=== PATIENT | male | born 1940 | race Caucasian/White ===

== ENCOUNTER → 2016-07-07 | Outpatient (CLI) | payer BC ==
[~2016-07-07] MED LIST: BNC/40 PO; HYDR12.55 PO; LATA0.009 OP; MELO7.5T5 PO; MULT-506 PO; NXM/40 PO; RAMI10CA PO; SIMV80TA5 PO; VNTHFA/IN INH
[2016-07-07 10:12] LABS: BASO % 0.4 %; BASO ABS # 0.03 K/uL (0-0.2); COMPLETE YES; HEMATOCRIT 42.2 % (42-52); IG% 0.3 %; LYMPH % 30.2 %; LYMPH ABS # 2.28 K/uL (1.2-3.4); MEAN CELL VOLUME 89.8 fL (80-100); MEAN CORPUSCULAR HEMOGLOBIN 30.4 pg (25-34); MEAN CORPUSCULAR HGB CONC 33.9 g/dl (32-36); MEAN PLATELET VOLUME 10.9 fL (7.4-10.4); MONO % 9.5 %; NEUT % 56.6 %; PLATELET COUNT 235 K/uL (130-400); WHITE BLOOD COUNT 7.56 K/uL (4.8-10.8)
[2016-07-07 10:22] LABS: ESTIMATED AVERAGE GLUCOSE 128 mg/dl; HA1C FLAG Normal (Normal)
[2016-07-07 10:55] LABS: AST/SGOT 20 U/L (15-37); BLOOD UREA NITROGEN 18 mg/dl (7-18); BUN/CREATININE RATIO 16.7 (10-20); CALCIUM 9.1 mg/dl (8.5-10.1); CARBON DIOXIDE 27 mmol/L (21-32); CHLORIDE 103 mmol/L (98-107); GLUCOSE 117 mg/dl (70-99); MAGNESIUM 2.1 mg/dl (1.8-2.4); POTASSIUM 3.8 mmol/L (3.5-5.1); SODIUM 139 mmol/L (136-145)
[2016-07-07 11:03] LABS: ALB/GLOB RATIO 1.1 (0.9-2); ALKALINE PHOSPHATASE 47 U/L (45-117); ALT/SGPT 28 U/L (12-78); CHOLESTEROL 174 mg/dl (0-200); CHOLESTEROL/HDL RATIO 3.3; HDL CHOLESTEROL 53 mg/dl; LDL CHOLESTEROL CALCULATED 96 mg/dl; TRIGLYCERIDES 124 mg/dl (0-150); VERY LOW DENSITY LIPOPROT CALC 25 mg/dl
== END | disposition home or self-care (01) ==
LOC: C.LAB 09:09
PROVIDERS: ATTEND Internal Medicine
DX: E78.5 Hyperlipidemia, unspecified (principal); G62.9 Polyneuropathy, unspecified; E11.9 Type 2 diabetes mellitus without complications

== ENCOUNTER → 2016-12-09 | Outpatient (CLI) | payer BC ==
[2016-12-09 10:08] LABS: BASO % 0.3 %; BASO ABS # 0.03 K/uL (0-0.2); COMPLETE YES; EOS % 2.8 %; HEMATOCRIT 42.9 % (42-52); IG% 0.3 %; LYMPH % 22.4 %; LYMPH ABS # 2.01 K/uL (1.2-3.4); MEAN CELL VOLUME 89.7 fL (80-100); MEAN CORPUSCULAR HEMOGLOBIN 29.3 pg (25-34); MEAN CORPUSCULAR HGB CONC 32.6 g/dl (32-36); MONO % 12.3 %; NEUT % 61.9 %; PLATELET COUNT 237 K/uL (130-400); RED BLOOD COUNT 4.78 M/uL (4.7-6.1); WHITE BLOOD COUNT 8.97 K/uL (4.8-10.8)
[2016-12-09 10:20] LABS: ESTIMATED AVERAGE GLUCOSE 140 mg/dl; HA1C FLAG Normal (Normal)
[2016-12-09 10:43] LABS: ALT/SGPT 27 U/L (12-78); BLOOD UREA NITROGEN 25 mg/dl (7-18); BUN/CREATININE RATIO 22.4 (10-20); CALCIUM 9.5 mg/dl (8.5-10.1); CARBON DIOXIDE 26 mmol/L (21-32); CHLORIDE 103 mmol/L (98-107); CHOLESTEROL 161 mg/dl (0-200); GLUCOSE 120 mg/dl (70-99); POTASSIUM 3.7 mmol/L (3.5-5.1); SODIUM 139 mmol/L (136-145); TRIGLYCERIDES 110 mg/dl (0-150); VERY LOW DENSITY LIPOPROT CALC 22 mg/dl
[2016-12-09 10:48] LABS: ALKALINE PHOSPHATASE 64 U/L (45-117); AST/SGOT 20 U/L (15-37); HDL CHOLESTEROL 54 mg/dl; LDL CHOLESTEROL CALCULATED 85 mg/dl; PROSTATE SPECIFIC ANTIGEN 0.845 ng/ml (0.000-4.000)
[2016-12-09 10:54] LABS: RATIO 281.7 mcg/mg (0-30.0)
== END ==
LOC: C.LAB 09:14
PROVIDERS: ATTEND Internal Medicine
DX: E11.9 Type 2 diabetes mellitus without complications (principal); G62.9 Polyneuropathy, unspecified; K21.9 Gastro-esophageal reflux disease without esophagitis; N40.0 Benign prostatic hyperplasia without lower urinary tract symptoms

== ENCOUNTER → 2017-02-01 | Day surgery (SDC) | payer BC ==
[2017-01-19 15:08] VITALS: BMI 31.0
[~2017-02-01] VITALS: Ht 182.9 cm; Wt 104.5 kg
[~2017-02-01] MED LIST changes: +LIDOCAINE HCL 2% 2 ML VIAL (20MG/ML) ONE; +PROPOFOL IV EMULSION 10 MG/ML 20 ML VIAL IV ONE
[2017-02-01 09:22] VITALS: Ht 182.9 cm; Wt 104.5 kg
--- NOTE | 2017-02-01 09:41 | Endo History and Physical ---
History & Physical Date of Service: Feb 01, 2017. Chief Complaint: HISTORY OF POLYPS Referring Physician: DR. PALOMO History of Present Illness 76 yo CM who presents for colonoscopy secondary to history of colon polyps. Past Surgical History Hx Cardiac Surgery: No Hx Internal Defibrillator: No Hx Pacemaker: No Hx Abdominal Surgery: No Hx Post-Op Nausea and Vomiting: No Hx Cancer Surgery: No Hx Thoracic Surgery: No Hx Orthopedic: No Hx Urinary Tract Surgery: No Family History None Social History Smoking Status: Former Smoker Hx Substance Use: No Hx Alcohol Use: Yes (OCCASIONAL) Allergies Coded Allergies: Allopurinol (Verified Allergy, Unknown, WRIST PAIN, 02/01/17) Diltiazem (Verified Allergy, Unknown, FEELING TIRED, 02/01/17) Doxazosin (Verified Allergy, Unknown, FEELING TIRED, 02/01/17) Hydrochlorothiazide (Verified Allergy, Unknown, FEELING TIRED, 02/01/17) Losartan (Verified Allergy, Unknown, FEELING TIRED, 02/01/17) Current Medications Reported Home Medications Medications Dose Route/Sig Max Daily Dose Days Date Category Xalatan 0.005% Oph Shannon (Latanoprost) 0.005 % Shannon 1 Drops OP HS 01/19/17 Reported Ventolin Hfa (Albuterol) 200 Puffs/90975 Mcg Aers 2-4 Puffs INH Q6H PRN 01/19/17 Reported Multivitamin (Multivitamins) Tab 1 Tab PO DAILY 01/19/17 Reported Zocor (Simvastatin) 80 Mg Tab 80 Mg PO QPM 01/19/16 Reported Ramipril 10 Mg Cap 1 Cap PO BID 01/19/16 Reported Mobic (Meloxicam) 7.5 Mg Tab 7.5 Mg PO BID PRN 01/19/16 Reported Hydrochlorothiazide 12.5 Mg Tab 1 Tab PO QAM 01/19/16 Reported Nexium (Esomeprazole Magnesium) 40 Mg Capcr 40 Mg PO QPM 01/19/16 Reported Benicar (Olmesartan Medoxomil) 40 Mg Tab 40 Mg PO QAM 01/19/16 Reported Vital Signs Weight (Kilograms): 104.55 Height (Feet): 6 Height (Inches): 0 Physical Exam General Appearance: WD/WN, no apparent distress Respiratory/Chest: Auscultation: breath sounds normal Cardiovascular: Heart Auscultation: RRR Abdomen: Bowel Sounds: normal Inspection & Palpation: soft, non-distended, no tenderness, guarding & rebound Assessment and Plan Assessment: 76 yo CM who presents for colonoscopy secondary to history of colon polyps. Plan: Proceed with colonoscopy.
--- NOTE | 2017-02-01 10:45 | GI REPORT ---
Procedure Date: 02/01/2017 10:04 AM Procedure: Colonoscopy Indications: High risk colon cancer surveillance: Personal history of colonic polyps Medicines: Monitored Anesthesia Care Complications: No immediate complications. Estimated Blood Loss: Estimated blood loss: none. Procedure: Pre-Anesthesia Assessment: - Prior to the procedure, a History and Physical was performed, and patient medications and allergies were reviewed. The patient's tolerance of previous anesthesia was also reviewed. The risks and benefits of the procedure and the sedation options and risks were discussed with the patient. All questions were answered, and informed consent was obtained. Prior Anticoagulants: The patient has taken no previous anticoagulant or antiplatelet agents. ASA Grade Assessment: III - A patient with severe systemic disease. After reviewing the risks and benefits, the patient was deemed in satisfactory condition to undergo the procedure. After I obtained informed consent, the scope was passed under direct vision. Throughout the procedure, the patient's blood pressure, pulse, and oxygen saturations were monitored continuously. The Scope was introduced through the anus and advanced to the terminal ileum. The colonoscopy was performed without difficulty. The patient tolerated the procedure well. The quality of the bowel preparation was good. The terminal ileum, ileocecal valve, appendiceal orifice, and rectum were photographed. Findings: Four sessile polyps were found in the rectum and in the transverse colon. The polyps were 4 to 6 mm in size. These polyps were removed with a hot snare. Resection and retrieval were complete. Multiple small-mouthed diverticula were found in the sigmoid colon. Non-bleeding internal hemorrhoids were found during retroflexion. Impression: - Four 4 to 6 mm polyps in the rectum and in the transverse colon, removed with a hot snare. Resected and retrieved. - Diverticulosis in the sigmoid colon. - Non-bleeding internal hemorrhoids. Recommendation: - Resume previous diet. - Continue present medications. - Repeat colonoscopy for surveillance based on pathology results. - Return to primary care physician as previously scheduled. Milton Balderas, DO 02/01/2017 10:44:50 AM This report has been signed electronically. Note Initiated On: 02/01/2017 10:04 AM I attest to the content of the Intraoperative Record and orders documented therein, exceptions below
--- NOTE | 2017-02-01 10:47 | Discharge Instructions ---
Endoscopy Patient Instructions Date / Procedure(s) Performed Feb 01, 2017. Colonoscopy Allergy Information Coded Allergies: Allopurinol (Verified Allergy, Unknown, WRIST PAIN, 02/01/17) Diltiazem (Verified Allergy, Unknown, FEELING TIRED, 02/01/17) Doxazosin (Verified Allergy, Unknown, FEELING TIRED, 02/01/17) Hydrochlorothiazide (Verified Allergy, Unknown, FEELING TIRED, 02/01/17) Losartan (Verified Allergy, Unknown, FEELING TIRED, 02/01/17) Discharge Date / Findings Feb 01, 2017. Colon polyps Diverticulosis Internal hemorrhoids Medication Instructions OK to resume all medications today as prescribed Reported Home Medications Medications Dose Route/Sig Max Daily Dose Days Date Category Xalatan 0.005% Oph Shannon (Latanoprost) 0.005 % Shannon 1 Drops OP HS 01/19/17 Reported Ventolin Hfa (Albuterol) 200 Puffs/88572 Mcg Aers 2-4 Puffs INH Q6H PRN 01/19/17 Reported Multivitamin (Multivitamins) Tab 1 Tab PO DAILY 01/19/17 Reported Zocor (Simvastatin) 80 Mg Tab 80 Mg PO QPM 01/19/16 Reported Ramipril 10 Mg Cap 1 Cap PO BID 01/19/16 Reported Mobic (Meloxicam) 7.5 Mg Tab 7.5 Mg PO BID PRN 01/19/16 Reported Hydrochlorothiazide 12.5 Mg Tab 1 Tab PO QAM 01/19/16 Reported Nexium (Esomeprazole Magnesium) 40 Mg Capcr 40 Mg PO QPM 01/19/16 Reported Benicar (Olmesartan Medoxomil) 40 Mg Tab 40 Mg PO QAM 01/19/16 Reported Provider Instructions Activity Restrictions - No exercising or heavy lifting for 24 hours. - Do not drink alcohol the day of the procedure. - Do not drive a car or operate machinery until the day after the procedure. - Do not make any important decisions or sign important papers in 24 hours after the procedure. Following Day: - Return to full activity which may include returning to work/school. Diet Start your diet with liquids and light foods (jello, soup, juice, toast). Then eat your usual diet if not nauseated. Treatment For Common After Affects For mild abdominal pain, bloating, or excessive gas: - Rest - Eat lightly - Lie on right side Follow-Up Information Follow-up with DR. PALOMO as scheduled Anesthesia Information What You Should Know You have had a procedure that required some medicine to reduce anxiety and discomfort. This treatment is called moderate sedation. After receiving the treatment, you may be sleepy, but you will be able to breathe on your own. The effects of the treatment may last for several hours. Follow these instructions along with Activity/Diet recommendations noted above: * Do NOT do anything where dizziness or clumsiness would be dangerous. * Rest quietly at home today, then you can be up and about tomorrow. * Have a responsible person stay with you the rest of today. * You may have had an I.V. today. If so, you may take the dressing off later today. Recommendations Call your doctor if: * Trouble breathing * Continuous vomiting for more than 24 hours * Temperature above 101 degrees * Severe abdominal pain or bloating * Pain not relieved by pain medicine ordered * There is increased drainage or redness from any incision * A large amount of rectal bleeding greater than 2-3 tablespoons. (If you had a polyp/s removed or have hemorrhoids, a small amount of blood - from the rectum is to be expected.) * You have any unanswered questions or concerns. IN THE EVENT OF A SERIOUS EMERGENCY, GO TO THE NEAREST EMERGENCY ROOM Your discharge instructions were prepared by provider Milton Balderas. Patient Instructions Signature Page Jose Frye Patient (or Guardian) Signature/Date: I have read and understand the instructions given to me by my caregivers. Caregiver/RN/Doctor Signature/Date: The above-named patient and/or guardian has received patient instructions on this date. + Original Patient Signature Page (only) stays with chart. Please make copy for patient.
--- NOTE | 2017-02-01 11:03 | Anesthesiology Progress Note ---
Anesthesia Post Op Note Date & Time Feb 01, 2017 at 11:03 Vital Signs Pain Intensity: 0 Vital Signs Past 12 Hours Date Time Temp Pulse Resp B/P (MAP) Pulse Ox O2 Delivery O2 Flow Rate FiO2 02/01/17 10:47 65 20 126/55 (78) 96 Room Air 02/01/17 09:40 36.5 68 20 182/100 (127) 92 Room Air Notes Mental Status: alert / awake / arousable, participated in evaluation Pt Amnestic to Procedure: Yes Nausea / Vomiting: adequately controlled Pain: adequately controlled Airway Patency, RR, SpO2: stable & adequate BP & HR: stable & adequate Hydration State: stable & adequate Anesthetic Complications: no major complications apparent
[2017-02-01 11:19] VITALS: BP 158/63; PULSE 64; O2SAT 95
== END | disposition home or self-care (01) ==
LOC: C.GI 09:00
PROVIDERS: ATTEND Internal Medicine
DX: Z12.11 Encounter for screening for malignant neoplasm of colon (principal); D12.3 Benign neoplasm of transverse colon; K62.1 Rectal polyp; K57.30 Diverticulosis of large intestine without perforation or abscess without bleeding; K64.8 Other hemorrhoids; Z86.010 Personal history of colon polyps; Z87.891 Personal history of nicotine dependence; Z79.899 Other long term (current) drug therapy

== ENCOUNTER → 2017-06-22 | Outpatient (CLI) | payer BC ==
[~2017-06-22] MED LIST changes: -LIDOCAINE HCL 2% 2 ML VIAL (20MG/ML) ONE; -PROPOFOL IV EMULSION 10 MG/ML 20 ML VIAL IV ONE; -SIMV80TA5 PO; +SIMV80TA7 PO
[2017-06-22 11:29] LABS: BASO % 0.3 %; BASO ABS # 0.03 K/uL (0-0.2); EOS % 1.8 %; EOS ABS # 0.18 K/uL (0-0.5); HEMATOCRIT 43.6 % (42-52); HEMOGLOBIN 14.2 g/dL (14.0-18.0); IG# 0.03 K/uL (0.00-0.02); LYMPH % 16.7 %; LYMPH ABS # 1.68 K/uL (1.2-3.4); MEAN CORPUSCULAR HEMOGLOBIN 29.6 pg (25-34); MEAN CORPUSCULAR HGB CONC 32.6 g/dl (32-36); MEAN PLATELET VOLUME 11.6 fL (7.4-10.4); MONO % 11.9 %; NEUT ABS # 6.97 K/uL (1.4-6.5); PLATELET COUNT 231 K/uL (130-400); RED CELL DISTRIBUTION WIDTH CV 13.8 % (11.5-14.5); RED CELL DISTRIBUTION WIDTH SD 46.4 fL (36.4-46.3); WHITE BLOOD COUNT 10.09 K/uL (4.8-10.8)
[2017-06-22 11:36] LABS: HEMOGLOBIN A1C 6.4 % (4.5-5.6)
[2017-06-22 12:44] LABS: ALT/SGPT 31 U/L (12-78); AST/SGOT 22 U/L (15-37); BLOOD UREA NITROGEN 18 mg/dl (7-18); CALCIUM 9.3 mg/dl (8.5-10.1); CARBON DIOXIDE 25 mmol/L (21-32); CHOLESTEROL 161 mg/dl (0-200); CREATININE 1.12 mg/dl (0.60-1.40); GLUCOSE 111 mg/dl (70-99); POTASSIUM 3.7 mmol/L (3.5-5.1); SODIUM 139 mmol/L (136-145)
[2017-06-22 12:49] LABS: LDL CHOLESTEROL CALCULATED 87 mg/dl
== END | disposition home or self-care (01) ==
LOC: C.LAB 09:21
PROVIDERS: ATTEND Internal Medicine
DX: E11.9 Type 2 diabetes mellitus without complications (principal); E78.5 Hyperlipidemia, unspecified; G62.9 Polyneuropathy, unspecified

== ENCOUNTER → 2018-01-05 | Outpatient (CLI) | payer BC ==
[2018-01-05 10:26] LABS: ALT/SGPT 31 U/L (12-78); AST/SGOT 30 U/L (15-37); BLOOD UREA NITROGEN 17 mg/dl (7-18); CALCIUM 9.3 mg/dl (8.5-10.1); CARBON DIOXIDE 29 mmol/L (21-32); CHOLESTEROL 136 mg/dl (0-200); CREATININE 1.01 mg/dl (0.60-1.40); GLUCOSE 112 mg/dl (70-99); LDL CHOLESTEROL CALCULATED 69 mg/dl; POTASSIUM 3.9 mmol/L (3.5-5.1); SODIUM 139 mmol/L (136-145)
[2018-01-05 10:30] LABS: HEMOGLOBIN A1C 6.3 % (4.5-5.6)
[2018-01-05 11:04] LABS: CREATININE RANDOM URINE 65.2 mg/dl
== END | disposition home or self-care (01) ==
LOC: C.LAB 08:06
PROVIDERS: ATTEND Internal Medicine Cardiovascular Disease
DX: E11.9 Type 2 diabetes mellitus without complications (principal); M10.9 Gout, unspecified; N40.0 Benign prostatic hyperplasia without lower urinary tract symptoms; E78.5 Hyperlipidemia, unspecified

== ENCOUNTER → 2018-02-08 | Outpatient (CLI) | payer BC | END | disposition home or self-care (01) | LOC: C.LAB 10:05 | PROVIDERS: ATTEND Internal Medicine | DX: R80.9 Proteinuria, unspecified (principal) ==

== ENCOUNTER → 2018-02-09 | Outpatient (CLI) | payer BC | END | disposition home or self-care (01) | LOC: C.RDSM 13:30 | PROVIDERS: ATTEND Family Medicine Sports Medicine | DX: M25.572 Pain in left ankle and joints of left foot (principal); M25.472 Effusion, left ankle ==

== ENCOUNTER 2024-10-19 13:07 | Observation (INO) ==
--- NOTE | 2024-10-19 13:31 | Emergency Department Note ---
Impression & Plan Pulmonary edema, Valvular heart disease, Elevated troponin I level ED Provider Note NAME: CHIDI GAYTAN AGE: 84 SEX: M : 1940 ARRIVES VIA: Walk-In INFORMANT: Patient, ED PROVIDER(S): Davin Mackay DO CHIEF COMPLAINT: Shortness of breath HPI: The patient is an 84-year-old male who presented to the emergency department for an evaluation of shortness of breath. The patient noticed a couple days ago that his abdomen was mildly distended. He started noticing he was having trouble taking a full deep breath. Over the last 24 hours his abdominal pain did resolve but now he notices he has difficulty breathing. He notices worsening difficulty breathing when he lies flat. The patient denies having any fever or cough. He denies have any lower extremity swelling. He has a history of aortic stenosis. ROS: See above HPI for pertinent positives & negatives. A total of 10 systems reviewed and were otherwise negative. PAST MEDICAL HISTORY: See Below PAST SURGICAL HISTORY: See Below FAMILY HISTORY: See Below SOCIAL HISTORY: See Below HOME MEDICATIONS: See Below ALLERGIES: See Below VITALS: See Below PHYSICAL EXAMINATION: GENERAL: Patient is awake alert in no acute distress patient is resting comfortably and showing no signs of anxiety EYES: The conjunctivae are clear. The pupils are round and reactive. EARS, NOSE, MOUTH AND THROAT: The nose is without any evidence of any deformity. NECK: The neck is nontender and supple. HJR was noted. RESPIRATORY: Diminished breath sounds are noted throughout with rales at both bases. CARDIOVASCULAR: Regular rate and rhythm was noted to auscultation. Systolic murmur was suggested. GASTROINTESTINAL: The abdomen is soft. Abdomen is nontender. MUSCULOSKELETAL/EXTREMITIES: There is no evidence of gross deformity full range of motion is noted in the hips and shoulders. SKIN: There is no obvious evidence of any rash. There are no petechiae, pallor or cyanosis noted. NEUROLOGIC: Patient is awake alert and oriented x3 MEDICAL DECISION MAKING: The patient is an 84-year-old male who presented to the emergency department for an evaluation of difficulty breathing. The patient's history and physical exam appear to be consistent with orthopnea. The patient was treated with Lasix in the emergency department. Chest x-ray does appear to be consistent with some volume overload. I discussed the patient's laboratory and radiographic studies with him. His troponin was slightly elevated. EKG shows no significant changes from before. It is possible this represents an ischemic episode however it could also be secondary to his valvular heart disease. Certainly an echocardiogram would help directing the patient's workup and treatment. For this reason I discussed his condition with the on-call [facility] hospitalist group. Triage Nursing notes reviewed. Prior medical records reviewed Vital Signs: reviewed and remarkable for elevated blood pressure and tachycardia. Differential diagnosis: Reactive airway disease, pneumonia, pneumothorax, COPD, CHF, infections, cardiac ischemia, pulmonary embolism, musculoskeletal, gastrointestinal, as well as other pathologies. ER treatment provided: See below Diagnostics interpreted by me: ECG: EKG was obtained in the emergency department. My interpretation is normal sinus rhythm at 86 bpm. There was no ectopy. Nonspecific ST abnormalities were noted. This was compared to a tracing from December 28, 2006. No specific changes were noted. Cardiac Monitoring: An order was placed for continuous cardiac monitoring. The monitor shows a rate of 105 bpm with sinus tachycardia. Laboratory studies: As stated above and show below. Imaging studies: See below. Radiographic imaging was reviewed by myself Consultation(s): I discussed this case with Jammie who is on-call for the [facility] hospitalist group. Past Med/Surg History Problem List (Updated 10/19/24 @ 16:32 by Davin Mackay DO) Elevated troponin I level (Acute) Valvular heart disease (Acute) Pulmonary edema (Acute) Shortness of breath Acute CHF (congestive heart failure) MGUS (monoclonal gammopathy of unknown significance) Aortic stenosis Dr. Chen Gout, joint hx Anemia Actinic keratosis (Acute) Benign prostatic hyperplasia with urinary obstruction (Acute) Chronic obstructive pulmonary disease (Acute) Type 2 diabetes mellitus (Acute) PAC (premature atrial contraction) LVH (left ventricular hypertrophy) Anemia, mild Current use of proton pump inhibitor Medical History Encounter for pre-operative examination History of COVID-2021. Type 2 diabetes mellitus Hemoglobin A1c less than 7.0% 5.8 last check. Environmental allergies Enlarged prostate Mild anemia reason for upcoming procedures. PVC's (premature ventricular contractions) Polyneuropathy Osteoarthritis Hypertension Hyperlipidemia GERD without esophagitis Colon polyps hx Carotid bruit hx u/s - less than 50 % blockage. Surgical History History of colonoscopy S/P cataract surgery bilat. Family History Father Family history of coronary artery disease Family history of dementia Myocardial infarction Denies family history of Ovarian cancer Prostate cancer Breast cancer Colorectal cancer Social History Smoking Status: Never smoker Tobacco Type: Cigarettes and Declines Age Started Using Tobacco: 19; packs per day: 0; Second Hand Exposure: No; Do You Dip or Chew Tobacco: No; Hx Alcohol Use: Yes Hx Substance Use: No Preferred Language: Colombian Communication Ability: Effective Visual Impairment: No Limitations Hearing Ability: Normal Secondary Spanish Teacher Required: No Beliefs That Will Affect Care: None marital status: / Current Living Situation: Alone current occupational status: retired Feels Safe at Home: Yes Childhood Exposure to Second-Hand Smoke: No Dental Care, Regularly: Yes Physical Activity Frequency: 3-4 Times per Week Seatbelt Use: always Sunscreen Use: Yes Assistive Devices: Cane and Glasses Allergies Allergies Allergy/AdvReac Type Severity Reaction Status Date / Time allopurinol AdvReac Unknown WRIST PAIN Verified 07/11/24 14:59 diltiazem AdvReac Unknown FEELING Verified 07/11/24 14:59 TIRED & see notes below. doxazosin AdvReac Unknown FEELING Verified 07/11/24 14:59 TIRED hydrochlorothiazide AdvReac Unknown FEELING Verified 07/11/24 14:59 TIRED losartan AdvReac Unknown FEELING Verified 07/11/24 14:59 TIRED cardizem Allergy Unknown the Uncoded 07/11/24 14:59 gingiva starts to grow and it didn't do much for me Home Meds Home Medications Medication Instructions Recorded Confirmed aluminum-magnesium hydroxide 500 5 ml PO HS 04/04/23 10/19/24 mg-500 mg/5 mL oral suspension multivitamin (Daily Multi-Vitamin 1 tab PO QAM 04/04/23 10/19/24 tablet) semaglutide 1 mg/dose (4 mg/3 mL) 1 mg subcut WK 10/19/24 10/19/24 subcutaneous pen injector tadalafil 5 mg tablet 5 mg PO DAILY 10/19/24 10/19/24 Previous Rx's Medication Instructions Recorded latanoprost 0.005 % eye drops 1 drops ophthalmic (eye) QPM #2.5 12/31/18 mL albuterol sulfate 90 mcg/actuation 2 puff inhalation Q8H PRN 07/06/22 aerosol inhaler shortness of breath or wheezing #3 grams famotidine 20 mg tablet (Pepcid) 20 mg PO DAILY #90 tabs 02/15/24 meloxicam 7.5 mg tablet 7.5 mg PO BID PRN osteoarthritis 04/30/24 flare up #180 tabs tamsulosin 0.4 mg capsule 0.4 mg PO BID #180 caps 06/17/24 esomeprazole magnesium 40 mg 40 mg PO QPM #90 caps 07/10/24 capsule,delayed release atorvastatin 40 mg tablet 40 mg PO QPM #90 tabs 10/02/24 olmesartan 40 mg tablet 40 mg PO QPM #90 tabs 10/02/24 ramipril 10 mg capsule 10 mg PO BID #180 caps 10/02/24 Results & Data (ED) Vital Signs Vital Signs - 24 hr 10/19/24 13:09 10/19/24 13:24 10/19/24 13:36 Temperature 36.8 C Temperature Source Temporal Artery Scan Pulse Rate 89 89 84 Pulse Rate from SpO2 Sensor 88 82 Pulse Rhythm Respiratory Rate 20 23 17 Respiratory Effort / Characteristics Non-Labored Spontaneous Respiratory Depth Normal Respiratory Pattern Blood Pressure 179/80 H Blood Pressure Mean 113 Blood Pressure Position Sitting Pulse Oximetry 95 95 94 Oxygen Delivery Method Nasal Cannula Oxygen Flow Rate 3 Sepsis Recent Fever Within 48 Hours No Sepsis New/Unexplained Change in Mental Status N/A Sepsis Action Taken by Nursing No Action Required 10/19/24 13:44 10/19/24 13:44 10/19/24 13:44 Temperature Temperature Source Pulse Rate 81 Pulse Rate from SpO2 Sensor Pulse Rhythm Respiratory Rate Respiratory Effort / Characteristics Non-Labored Spontaneous Respiratory Depth Normal Respiratory Pattern Regular Blood Pressure Blood Pressure Mean Blood Pressure Position Pulse Oximetry Oxygen Delivery Method Nasal Cannula Nasal Cannula Oxygen Flow Rate 2 2 Sepsis Recent Fever Within 48 Hours Sepsis New/Unexplained Change in Mental Status Sepsis Action Taken by Nursing 10/19/24 13:44 10/19/24 14:00 10/19/24 14:27 Temperature Temperature Source Pulse Rate 86 80 76 Pulse Rate from SpO2 Sensor 80 76 Pulse Rhythm Regular Respiratory Rate 21 16 Respiratory Effort / Characteristics Respiratory Depth Respiratory Pattern Blood Pressure 207/93 H 154/70 H Blood Pressure Mean 131 98 Blood Pressure Position Pulse Oximetry 95 95 96 Oxygen Delivery Method Nasal Cannula Oxygen Flow Rate 2 Sepsis Recent Fever Within 48 Hours Sepsis New/Unexplained Change in Mental Status Sepsis Action Taken by Nursing 10/19/24 14:30 10/19/24 14:30 10/19/24 14:36 Temperature Temperature Source Pulse Rate 79 Pulse Rate from SpO2 Sensor 78 Pulse Rhythm Respiratory Rate 17 Respiratory Effort / Characteristics Respiratory Depth Respiratory Pattern Blood Pressure 154/70 H 154/70 H Blood Pressure Mean 115 115 Blood Pressure Position Pulse Oximetry 95 Oxygen Delivery Method Oxygen Flow Rate Sepsis Recent Fever Within 48 Hours Sepsis New/Unexplained Change in Mental Status Sepsis Action Taken by Nursing 10/19/24 15:00 10/19/24 15:00 10/19/24 15:00 Temperature Temperature Source Pulse Rate 82 Pulse Rate from SpO2 Sensor 82 Pulse Rhythm Respiratory Rate 15 Respiratory Effort / Characteristics Respiratory Depth Respiratory Pattern Blood Pressure 180/82 H 180/82 H Blood Pressure Mean 144 144 Blood Pressure Position Pulse Oximetry 97 Oxygen Delivery Method Oxygen Flow Rate Sepsis Recent Fever Within 48 Hours Sepsis New/Unexplained Change in Mental Status Sepsis Action Taken by Nursing 10/19/24 15:27 10/19/24 15:45 10/19/24 15:54 Temperature Temperature Source Pulse Rate 93 H 119 H 105 H Pulse Rate from SpO2 Sensor 94 H 105 H Pulse Rhythm Respiratory Rate 20 26 H 24 Respiratory Effort / Characteristics Respiratory Depth Respiratory Pattern Blood Pressure 204/110 H Blood Pressure Mean 141 Blood Pressure Position Pulse Oximetry 97 97 Oxygen Delivery Method Oxygen Flow Rate Sepsis Recent Fever Within 48 Hours Sepsis New/Unexplained Change in Mental Status Sepsis Action Taken by Nursing 10/19/24 16:00 Temperature Temperature Source Pulse Rate Pulse Rate from SpO2 Sensor Pulse Rhythm Respiratory Rate Respiratory Effort / Characteristics Respiratory Depth Respiratory Pattern Blood Pressure 228/107 H Blood Pressure Mean 163 Blood Pressure Position Pulse Oximetry Oxygen Delivery Method Oxygen Flow Rate Sepsis Recent Fever Within 48 Hours Sepsis New/Unexplained Change in Mental Status Sepsis Action Taken by Alf Medications Current Medication List: was personally reviewed by me Laboratory Data Attestation: I reviewed the patient's lab results. 10/19/24 13:40 10/19/24 13:40 Lab Results 10/19/24 10/19/24 10/19/24 Range/Units 13:40 14:46 14:49 WBC 8.90 (4.8-10.8) K/ul RBC 3.94 L (4.70-6.10) M/uL Hgb 11.5 L (14.0-18.0) g/dl Hct 35.1 L (42.0-52.0) % MCV 89.1 (80.0-100.0) fL MCH 29.2 (25.0-34.0) pg MCHC 32.8 (32.0-36.0) g/dL RDW Std Deviation 48.0 H (36.4-46.3) fL RDW Coeff of Chrissy 14.8 H (11.5-14.5) % Plt Count 225 (130-400) K/uL MPV 10.7 (9.4-12.4) fL Immature Gran % (Auto) 0.4 % Neut % (Auto) 70.2 % Lymph % (Auto) 14.2 % [place] % (Auto) 12.0 % Eos % (Auto) 2.6 % Baso % (Auto) 0.6 % Neut # (Auto) 6.25 (1.40-6.50) K/uL Lymph # (Auto) 1.26 (1.20-3.40) K/uL [place] # (Auto) 1.07 H (0.11-0.59) K/uL Eos # (Auto) 0.23 (0.00-0.50) K/uL Baso # (Auto) 0.05 (0.00-0.20) K/uL Immature Gran # (Auto) 0.04 (0.01-0.20) K/uL PT Cancelled 10.8 INR Cancelled 1.0 APTT Cancelled 32 H PTT Ratio Cancelled 1.2 VBG pH 7.44 H (7.36-7.41) VBG pCO2 35 L (38-50) mmHg VBG pO2 69 mmHg VBG HCO3 24 mmol/L VBG O2 Saturation 93.4 % VBG Base Excess 0.1 mEq/L Sodium 135 L (136-145) mmol/L Potassium 4.0 (3.5-5.1) mmol/L Chloride 102 (98-107) mmol/L Carbon Dioxide 25 (21-32) mmol/L Anion Gap 8 (3-11) BUN 20 (6-23) mg/dl Creatinine 1.11 (0.6-1.4) mg/dl Est Cr Clr Drug Dosing 62.8 ml/min eGFR 65.89 BUN/Creatinine Ratio 18.0 (10-20) Glucose 102 H (70-99(Fasting)) mg/dl Calcium 9.1 (8.6-10.3) mg/dl Magnesium 1.9 (1.7-2.4) mg/dl Total Bilirubin 0.7 (0.2-1.0) mg/dl AST 26 (13-39) U/L ALT 21 (7-52) U/L Alkaline Phosphatase 61 (34-104) U/L Troponin I High Sens 20.7 H (0-20) pg/ml B-Natriuretic Peptide 284 H (0-100) pg/ml Total Protein 6.8 (6.0-8.3) gm/dl Albumin 4.2 (3.4-5.0) gm/dl Globulin 2.6 (2.5-4.0) gm/dl Albumin/Globulin Ratio 1.6 (0.9-2) Urine Color Yellow Urine Appearance Clear (Clear) Urine pH 6.0 (4.5-7.5) Ur Specific [place] 1.011 (1.000-1.030) Urine Protein Negative (Negative) Urine Glucose (UA) Negative (Negative) Urine Ketones Negative (Negative) Urine Blood Negative (Negative) Urine Nitrite Negative (Negative) Urine Bilirubin Negative (Negative) Urine Urobilinogen Negative (Negative) Ur Leukocyte Esterase Negative (Negative) SARS-CoV-2 (PCR) NEGATIVE (Negative) Influenza Type A (PCR) Negative (Neg) Influenza Type B (PCR) Negative (Neg) RSV (RT-PCR) Negative (Neg) Administered Medications Discontinued Medications Furosemide (Furosemide 40 Mg/4 Ml Vial) 80 mg IV ONE ONE Stop: 10/19/24 15:08 Last Admin: 10/19/24 15:30 Dose: 80 mg Documented By: SINGH Nitroglycerin (Nitroglycerin 2% Ointment 30gm Tube) Confirm Administered Dose 18 inch EXT .STK-MED ONE Stop: 10/19/24 16:11 Last Admin: 10/19/24 16:12 Dose: 1 inch Documented By: QUETA Imaging Data Attestation: I personally reviewed and interpreted this imaging study as follows: My Impression: 1 view chest x-ray was obtained in the emergency department. My interpretation is blunting of the costophrenic angle, volume overload noted, final report below. Radiologist's Impression: Chest X-Ray 10/19/24 13:20 Clinical History: Shortness of breath Technique: A frontal view of the chest was obtained Comparison is made to the prior examination dated 01/01/2019 Findings: There are new multifocal interstitial and alveolar infiltrates bilaterally, likely due to pneumonia. The heart size is within normal limits. No pleural effusion or pneumothorax is seen. There is no definite pulmonary nodule. No fracture is noted. No foreign body is seen Impression: Apparent bilateral pneumonia ACT 112: Positive. There are findings on this exam that require communication between the performing entity and the patient following Patient Test Result Information Act ([place] ACT 112) guidelines. Electronically signed by Rusty Judge 10-19-2024 2:03 PM Discharge Plan Visit Data Chief Complaint: Shortness of Breath/Dyspnea Stated Complaint: SOB ED Provider: Davin Mackay Discharge Problem: Pulmonary edema, Valvular heart disease, Elevated troponin I level Patient Disposition: Being Evaluated by Hospitalist Condition: Good Forms Stand Alone Forms: My [facility] Prescriptions Prescriptions: No Action famotidine [Pepcid] 20 mg tablet 20 mg PO DAILY Qty: 90 3RF meloxicam 7.5 mg tablet 7.5 mg PO BID PRN (Reason: osteoarthritis flare up) Qty: 180 1RF esomeprazole magnesium 40 mg capsule,delayed release(DR/EC) 40 mg PO QPM Qty: 90 3RF ramipril 10 mg capsule 10 mg PO BID Qty: 180 3RF olmesartan 40 mg tablet 40 mg PO QPM Qty: 90 3RF atorvastatin 40 mg tablet 40 mg PO QPM Qty: 90 3RF albuterol sulfate 90 mcg/actuation HFA aerosol inhaler 2 puff inhalation Q8H PRN (Reason: shortness of breath or wheezing) Qty: 3 1RF latanoprost 0.005 % drops 1 drops OP QPM Qty: 2.5 2RF tamsulosin 0.4 mg capsule 0.4 mg PO BID Qty: 180 3RF multivitamin [Daily Multi-Vitamin] tablet 1 tab PO QAM aluminum-magnesium hydroxide 500-500 mg/5 mL Suspension 5 ml PO HS tadalafil 5 mg tablet 5 mg PO DAILY Rx Instructions: TAKE 1 TABLET DAILY semaglutide 1 mg/dose (4 mg/3 mL) pen injector 1 mg subcut WK Rx Instructions: 1 mg subcutaneously once weekly; a1c 6.8 with diabetes type two; Referrals Referrals: ProDavin MD [Primary Care Provider] -
[2024-10-19 13:49] LABS: Base Excess VBG 0.1 mEq/L; Basophils # (auto) 0.05 K/uL (0.00-0.20); Basophils % (auto) 0.6 %; Eosinophils # (auto) 0.23 K/uL (0.00-0.50); Eosinophils % (auto) 2.6 %; HCO3 VBG 24 mmol/L; Hematocrit (blood only) 35.1 % (42.0-52.0); Hemoglobin 11.5 g/dl (14.0-18.0); Immature Granulocytes # (auto) 0.04 K/uL (0.01-0.20); Immature Granulocytes % (auto) 0.4 %; Lymphocytes # (auto) 1.26 K/uL (1.20-3.40); Lymphocytes % (auto) 14.2 %; Mean Corpuscular Hemoglobin 29.2 pg (25.0-34.0); Mean Corpuscular Hgb Conc 32.8 g/dL (32.0-36.0); Mean Corpuscular Volume 89.1 fL (80.0-100.0); Mean Platelet Volume 10.7 fL (9.4-12.4); Monocytes # (auto) 1.07 K/uL (0.11-0.59); Neutrophils # (auto) 6.25 K/uL (1.40-6.50); Neutrophils % (auto) 70.2 %; Oxygen Saturation VBG 93.4 %; PCO2 VBG 35 mmHg (38-50); PO2 VBG 69 mmHg; Platelet Count 225 K/uL (130-400); RDW Coefficient of Variation 14.8 % (11.5-14.5); Red Blood Count 3.94 M/uL (4.70-6.10); pH VBG 7.44 (7.36-7.41)
--- NOTE | 2024-10-19 14:04 | XRay Report ---
Clinical History: Shortness of breath Technique: A frontal view of the chest was obtained Comparison is made to the prior examination dated 01/01/2019 Findings: There are new multifocal interstitial and alveolar infiltrates bilaterally, likely due to pneumonia. The heart size is within normal limits. No pleural effusion or pneumothorax is seen. There is no definite pulmonary nodule. No fracture is noted. No foreign body is seen Impression: Apparent bilateral pneumonia ACT 112: Positive. There are findings on this exam that require communication between the performing entity and the patient following Patient Test Result Information Act ([place] ACT 112) guidelines. Electronically signed by Rusty Judge 10-19-2024 2:03 PM
[2024-10-19 14:11] LABS: Albumin Globulin Ratio 1.6 (0.9-2); Albumin Level 4.2 gm/dl (3.4-5.0); Bilirubin,Total 0.7 mg/dl (0.2-1.0); Calcium 9.1 mg/dl (8.6-10.3); Creatinine Clr Calc Pharmacy 62.8 ml/min; Globulin 2.6 gm/dl (2.5-4.0); Magnesium 1.9 mg/dl (1.7-2.4); Total Protein 6.8 gm/dl (6.0-8.3)
[2024-10-19 14:17] LABS: Troponin I High Sensitivity 20.7 pg/ml (0-20)
[2024-10-19 14:32] LABS: Influenza A virus by PCR Negative (Neg); Influenza B virus by PCR Negative (Neg); RSV by PCR Negative (Neg); SARS CoV2 RNA(COVID-19) Ceph NEGATIVE (Negative)
[2024-10-19 15:04] LABS: Appearance Urine Clear (Clear); Bilirubin Urine Negative (Negative); Blood Urine Negative (Negative); Color Urine Yellow; Glucose Urine UA Negative (Negative); Ketones Urine Negative (Negative); Leukocyte Esterase Urine Negative (Negative); Nitrite Urine Negative (Negative); Protein Urine Negative (Negative); Specific Gravity Urine 1.011 (1.000-1.030); Urobilinogen Urine Negative (Negative)
[2024-10-19] MEDS: FUROSEMIDE 40 MG/4 ML VIAL IV ONE (15:30)
[2024-10-19] MEDS ORDERED: ACETAMINOPHEN 325 MG TAB PO PRN (15:42)
[2024-10-19] MEDS ORDERED: ONDANSETRON INJ 2 MG/ML 2 ML VIAL IV PRN (15:42)
[2024-10-19 15:49] LABS: Partial Thromboplastin Ratio 1.2; Partial Thromboplastin Time 32 Seconds (21-31); Prothrombin Time 10.8 Seconds (9.0-12.0)
--- NOTE | 2024-10-19 16:07 | History & Physical Report ---
Date of Service October 19, 2024 Assessment & Plan (1) Aortic stenosis: (2) Acute CHF (congestive heart failure): (3) Type 2 diabetes mellitus: (4) Hypertension: (5) Shortness of breath: Plan This is an 84-year-old gentleman with past medical history of BPH, MGUS, anemia, aortic stenosis, COPD, anemia, type 2 diabetes who presented to the emergency department on 10/19/2024 with a chief complaint of shortness of breath. #Aortic stenosis/dyspnea Approximately 6 days of shortness of breath prior to admission, worse w/ walking & lying flat Concern for new onset CHF. CBC without leukocytosis, hemoglobin stable at 11.5. BMP with mildly low sodium of 135, remainder of electrolytes and renal function stable Venous blood gases: pH 7.44, [id number], PO269, HCO3 24 Troponin elevated at 20.7, repeat pendinglikely demand in the setting of dyspnea. EKG without ischemic changes and no complaints of chest pain BNP elevated at 284, no previous to compare. Chest x-ray with concerning features for volume overload S/p 80 mg IV Lasix in ED --> Will plan to continue 40 mg IV Lasix BID starting 10/20 Repeat echocardiogram ordered and pending. Most recent echocardiogram from 06/20/2024 did reveal an EF of 60 to 65% and severe valvular aortic stenosis with moderate concentric left ventricular hypertrophy Cardiology consulted, appreciate recommendations Daily weights, standing if able Replace electrolytes as necessary w/ diuresis Oxygen as needed #HTN With significant hypertension in the ED, highest 228/107 and he did take his morning medications Home meds include metoprolol succinate 50 mg daily, olmesartan 40 mg daily, and ramipril 10 mg twice daily.Did confirm these and he states that this is what cardiology has recommended Will plan to continue home medications upon admission. Nitro paste q6h to help bring down BP If BPs remain elevated, he may require adjustment to his medications #Type 2 diabetes On Ozempic outpatient --> hold while inpatient. 07/13 A1c 5.4%, will repeat in AM SSI while inpatient, adjust as needed Chronic conditions: Hyperlipidemia: Atorvastatin GERD: PPI, Pepcid BPH: Flomax DVT prophylaxis: Lovenox Code: full Case discussed w/ Dr. Hunt at time of admission. History of Present Illness Primary Care Provider: Davin Urena MD This is an 84-year-old gentleman with past medical history of BPH, MGUS, anemia, aortic stenosis, COPD, anemia, type 2 diabetes who presented to the emergency department on 10/19/2024 with a chief complaint of shortness of breath. The patient was seen and examined this afternoon. Patient appeared in mild to moderate distress at time of encounter. He was reporting that he was unable to get enough oxygen. He states that his shortness of breath started on Monday and he had originally felt that he was getting better. However today he woke up and his symptoms had worsened. He states that his symptoms are worse with lying down. While I visit took place, patient had to sit up in bed in order to catch his breath. He also reports his symptoms are worse with walking. He feels the most comfortable when he is sitting upright or standing. He states that this is never happened before. He denies any lower extremity edema or chest discomfort. He states that he did take his morning medications today. He states that he has been on both an STACIE inhibitor and an ARB for quite some time at the discretion of his behavioral health specialist. He denies any abdominal pain, nausea, vomiting. He denies any urinary complaints. He does follow routinely with Dr. Chen and has for quite some time. He has severe aortic stenosis as of June 2024 diagnosed off of an echocardiogram. Patient also follows with urology for BPH. He is currently on Ozempic for management of his type 2 diabetes and states that he has lost about 20 pounds since starting this medication last year. While in the emergency department he did undergo a chest x-ray that did document possible pneumonia however upon further examination did show volume overload. Patient's hemoglobin was within baseline at 11.5. His sodium was mildly low at 135. Renal function was stable. His original troponin was 20.7 with a repeat pending. His BNP was elevated at 284 with nothing prior to compare. He was given 80 mg IV Lasix. Code discussion did take place and patient reports he is a full code. Allergies Allergy/AdvReac Type Severity Reaction Status Date / Time allopurinol AdvReac Unknown WRIST PAIN Verified 07/11/24 14:59 diltiazem AdvReac Unknown FEELING Verified 07/11/24 14:59 TIRED & see notes below. doxazosin AdvReac Unknown FEELING Verified 07/11/24 14:59 TIRED hydrochlorothiazide AdvReac Unknown FEELING Verified 07/11/24 14:59 TIRED losartan AdvReac Unknown FEELING Verified 07/11/24 14:59 TIRED cardizem Allergy Unknown the Uncoded 07/11/24 14:59 gingiva starts to grow and it didn't do much for me Home Medications Medication Instructions Recorded Confirmed Type latanoprost 0.005 % eye drops 1 drops ophthalmic (eye) QPM #2.5 12/31/18 10/19/24 Rx mL albuterol sulfate 90 mcg/actuation 2 puff inhalation Q8H PRN 07/06/22 10/19/24 Rx aerosol inhaler shortness of breath or wheezing #3 grams aluminum-magnesium hydroxide 500 5 ml PO HS 04/04/23 10/19/24 History mg-500 mg/5 mL oral suspension multivitamin (Daily Multi-Vitamin 1 tab PO QAM 04/04/23 10/19/24 History tablet) famotidine 20 mg tablet (Pepcid) 20 mg PO DAILY #90 tabs 02/15/24 10/19/24 Rx meloxicam 7.5 mg tablet 7.5 mg PO BID PRN osteoarthritis 04/30/24 10/19/24 Rx flare up #180 tabs tamsulosin 0.4 mg capsule 0.4 mg PO BID #180 caps 06/17/24 10/19/24 Rx esomeprazole magnesium 40 mg 40 mg PO QPM #90 caps 07/10/24 10/19/24 Rx capsule,delayed release atorvastatin 40 mg tablet 40 mg PO QPM #90 tabs 10/02/24 10/19/24 Rx olmesartan 40 mg tablet 40 mg PO QPM #90 tabs 10/02/24 10/19/24 Rx ramipril 10 mg capsule 10 mg PO BID #180 caps 10/02/24 10/19/24 Rx semaglutide 1 mg/dose (4 mg/3 mL) 1 mg subcut WK 10/19/24 10/19/24 History subcutaneous pen injector tadalafil 5 mg tablet 5 mg PO DAILY 10/19/24 10/19/24 History Past Med/Surg History Problem List (Updated 10/19/24 @ 16:32 by Davin Mackay DO) Elevated troponin I level (Acute) Valvular heart disease (Acute) Pulmonary edema (Acute) Shortness of breath Acute CHF (congestive heart failure) MGUS (monoclonal gammopathy of unknown significance) Aortic stenosis Dr. Chen Gout, joint hx Anemia Actinic keratosis (Acute) Benign prostatic hyperplasia with urinary obstruction (Acute) Chronic obstructive pulmonary disease (Acute) Type 2 diabetes mellitus (Acute) PAC (premature atrial contraction) LVH (left ventricular hypertrophy) Anemia, mild Current use of proton pump inhibitor Medical History Encounter for pre-operative examination History of COVID-2021. Type 2 diabetes mellitus Hemoglobin A1c less than 7.0% 5.8 last check. Environmental allergies Enlarged prostate Mild anemia reason for upcoming procedures. PVC's (premature ventricular contractions) Polyneuropathy Osteoarthritis Hypertension Hyperlipidemia GERD without esophagitis Colon polyps hx Carotid bruit hx u/s - less than 50 % blockage. Surgical History History of colonoscopy S/P cataract surgery bilat. Family History Father Family history of coronary artery disease Family history of dementia Myocardial infarction Denies family history of Ovarian cancer Prostate cancer Breast cancer Colorectal cancer Social History Smoking Status: Never smoker Tobacco Type: Cigarettes and Declines Age Started Using Tobacco: 19; packs per day: 0; Second Hand Exposure: No; Do You Dip or Chew Tobacco: No; Hx Alcohol Use: Yes Hx Substance Use: No Preferred Language: Japanese Communication Ability: Effective Visual Impairment: No Limitations Hearing Ability: Normal Rn Neurosurgical Required: No Beliefs That Will Affect Care: None marital status: / Current Living Situation: Alone current occupational status: retired Feels Safe at Home: Yes Childhood Exposure to Second-Hand Smoke: No Dental Care, Regularly: Yes Physical Activity Frequency: 3-4 Times per Week Seatbelt Use: always Sunscreen Use: Yes Assistive Devices: Cane and Glasses Physical Exam Physical Exam: General: mild-moderate distress; non-toxic appearing; well-nourished; cooperative HEENT: normocephalic, atraumatic; no scleral icterus; PERRLA w/ EOMs intact; vision and hearing grossly intact Neck: supple; no lymphadenopathy; trachea midline Skin: warm, dry without signs of tenting; no cyanosis; no rashes, bruising, lesions, or erythema noted CV: chest wall NTP, systolic murmur. regular rate, regular rhythm Lungs: no acute respiratory distress; symmetrical chest wall expansion; lung sounds diminished b/l w/ rales noted at b/l bases. ABD: Soft, NTP; BS present; no rebound/guarding; no distention MSK: no tics or fasciculations; no edema noted in the LEs b/l, nonerythematous Neuro: A&Ox3; normal mood and affect; fluent speech; no focal deficits; sensation grossly intact in the LEs b/l Results & Data Results & Data Vital Signs (Past 12 Hours) Vital Signs Temp Pulse Resp BP Pulse Ox O2 Del Method O2 Flow Rate 10/19/24 15:00 82 15 97 10/19/24 15:00 180/82 H 10/19/24 15:00 180/82 H 10/19/24 14:36 79 17 95 10/19/24 14:30 154/70 H 10/19/24 14:30 154/70 H 10/19/24 14:27 76 16 154/70 H 96 10/19/24 14:00 80 21 207/93 H 95 10/19/24 13:44 86 95 Nasal Cannula 2 10/19/24 13:44 Nasal Cannula 2 10/19/24 13:44 Nasal Cannula 2 10/19/24 13:44 81 10/19/24 13:36 84 17 94 10/19/24 13:24 89 23 95 10/19/24 13:09 36.8 C 89 20 179/80 H 95 Nasal Cannula 3 Supervising Physician Co-Signing Physician Notes The patient was seen by me. The chart was reviewed. Case discussed with MARGO Gonsalves. Agree with assessment and plan PG Care Time/CCT Total # of Minutes Spent Total Time Spent with Patient: Total time spent is greater than 50% in coordination of care (as documented) at patient's floor/unit and/or counseling patient: Coding Level of Care Code 50810 INT INP/OBS CARE 3/75MIN Diagnoses Aortic stenosis I35.0 Acute CHF (congestive heart failure) I50.9 Type 2 diabetes mellitus E11.9 Essential hypertension I10 Hypertension type: essential hypertension Shortness of breath R06.02 (4) Hypertension Hypertension type: essential hypertension Qualified Code(s): I10 - Essential (primary) hypertension
[2024-10-19] MEDS: NITROGLYCERIN 2% OINTMENT 30GM TUBE EXT ONE (16:12)
[2024-10-19] MEDS: METOPROLOL TARTRATE 1 MG/ML VIAL IV STA (17:09)
[2024-10-19] MEDS ORDERED: ALBUTEROL HFA 8 GM INHALER INH PRN (18:31)
[2024-10-19] MEDS ORDERED: Nursing to Pharmacy Communication SCH (18:45)
[2024-10-19] MEDS: NITROGLYCERIN 2% OINTMENT 30GM TUBE EXT SCH (19:44)
[2024-10-19] MEDS: INSULIN ASPART PER UNIT CHARGE SC SCH (20:50)
[2024-10-19] MEDS: METOPROLOL TARTRATE 1 MG/ML VIAL IV SCH (21:04)
[2024-10-19] MEDS: ALUMINUM/MAGNESIUM SUSP 30 ML UDC PO SCH (21:14)
[2024-10-19] MEDS: METOPROLOL TARTRATE 25 MG TAB PO SCH (21:31)
[2024-10-19] MEDS: ENOXAPARIN INJ 40 MG/0.4 ML SYR SQ SCH (21:32)
[2024-10-19] MEDS: PANTOprazole 40 MG TAB PO SCH (21:34)
[2024-10-19] MEDS: ATORVASTATIN 40 MG TAB PO SCH (21:35)
[2024-10-19] MEDS: LATANOPROST 0.005% OP SOLN 2.5 ML BTL OP SCH (21:36)
[2024-10-19] MEDS: LOSARTAN POTASSIUM 50 MG TAB PO SCH (21:36)
[2024-10-19] MEDS: ENALAPRIL MALEATE 10 MG TAB PO SCH (21:37)
[2024-10-19] MEDS: TAMSULOSIN HCL 0.4 MG CAP PO SCH (21:37)
[2024-10-19] MEDS ORDERED: NITROGLYCERIN 2% OINTMENT 30GM TUBE EXT SCH (22:00)
[2024-10-19] MEDS: FUROSEMIDE 40 MG/4 ML VIAL IV SCH (22:06)
[2024-10-20 06:27] LABS: Hematocrit (blood only) 36.3 % (42.0-52.0); Hemoglobin 11.8 g/dl (14.0-18.0); Mean Corpuscular Hemoglobin 29.6 pg (25.0-34.0); Mean Corpuscular Hgb Conc 32.5 g/dL (32.0-36.0); Mean Corpuscular Volume 91.2 fL (80.0-100.0); Mean Platelet Volume 10.7 fL (9.4-12.4); Platelet Count 241 K/uL (130-400); RDW Coefficient of Variation 14.6 % (11.5-14.5); RDW Standard Deviation 48.8 fL (36.4-46.3); Red Blood Count 3.98 M/uL (4.70-6.10); White Blood Count 8.31 K/ul (4.8-10.8)
[2024-10-20 06:48] LABS: BUN Creatinine Ratio 18.5 (10-20); Calcium 9.3 mg/dl (8.6-10.3); Creatinine Clr Calc Pharmacy 54.6 ml/min; Magnesium 1.9 mg/dl (1.7-2.4); Potassium 3.8 mmol/L (3.5-5.1)
[2024-10-20 07:16] VITALS: RESP 20
--- NOTE | 2024-10-20 08:26 | XRay Report ---
HISTORY: CHF TECHNIQUE: Portable AP radiograph of the chest. COMPARISON: Chest radiograph dated 10/19/2024. FINDINGS: Small left and trace right pleural effusions. Similar left basilar opacity. Mildly improved right basilar opacity. No pneumothorax. Top normal heart size. Left-sided aortic arch. Midline trachea. No acute osseous abnormality. Included upper abdomen is unremarkable. IMPRESSION: * Small left and trace right pleural effusions. Right basilar opacity is mildly improved. Similar left basilar opacity. Opacities could reflect atelectasis or pneumonia. Electronically signed by Morales Cheng 10-20-2024 08:25 AM
[2024-10-20] MEDS: ENALAPRIL MALEATE 5 MG TAB PO SCH (08:37)
[2024-10-20] MEDS: FAMOTIDINE 20 MG TAB PO SCH (08:41)
[2024-10-20] MEDS: MULTIVITAMIN TAB PO SCH (08:42)
[2024-10-20] MEDS ORDERED: FUROSEMIDE 40 MG TAB PO SCH (09:00)
--- NOTE | 2024-10-20 09:32 | Electrocardiogram Report ---
Test Reason : Blood Pressure : */* mmHG Vent. Rate : 86 BPM Atrial Rate : 86 BPM P-R Int : 166 ms QRS Dur : 100 ms QT Int : 382 ms P-R-T Axes : 60 64 99 degrees QTcB Int : 457 ms Sinus rhythm with Premature atrial complexes Otherwise normal ECG When compared with ECG of 28-Dec-2006 01:04, Premature atrial complexes are now Present Confirmed by Rubi Miller (Talia) on 10/20/2024 9:32:15 AM Referred By: Confirmed By: Rubi Miller
[2024-10-20 09:37] LABS: Estimated Average Glucose 105 mg/dl; Hemoglobin A1C 5.3 % (4.5-5.6)
[2024-10-20 10:22] VITALS: BP 144/76; O2SAT 98
--- NOTE | 2024-10-20 10:59 | Discharge Summary ---
Discharge Summary Date of Service October 20, 2024 Principal Dx & Hospital Course #1 = Principal Diagnosis (1) Acute CHF (congestive heart failure): Acute diastolic CHF present on admission due to known severe aortic valve stenosis and uncontrolled hypertension. CHF has resolved with parenteral Lasix therapy and blood pressure control. Chest x-ray looks much better. He is now on room air (2) Acute respiratory failure with hypoxia: Now resolved. He is on room air (3) Hypertension: Markedly hypertensive on admission. He responded nicely to Lasix diuresis and topical nitrates and addition of metoprolol. Topical nitrates have since been discontinued. He will remain on metoprolol at discharge. Continue other medications as before with reduction of ramipril dosage to 5 mg twice daily (4) Aortic stenosis: He will discuss TAVR procedure when he sees his deli manager as soon as possible. (5) Type 2 diabetes mellitus: ADA diet. Sliding scale coverage while hospitalized. Resume usual home management at discharge Plan Home today, October 20 Admission HPI Per Admitting Provider This is an 84-year-old gentleman with past medical history of BPH, MGUS, anemia, aortic stenosis, COPD, anemia, type 2 diabetes who presented to the emergency department on 10/19/2024 with a chief complaint of shortness of breath. The patient was seen and examined this afternoon. Patient appeared in mild to moderate distress at time of encounter. He was reporting that he was unable to get enough oxygen. He states that his shortness of breath started on Monday and he had originally felt that he was getting better. However today he woke up and his symptoms had worsened. He states that his symptoms are worse with lying down. While I visit took place, patient had to sit up in bed in order to catch his breath. He also reports his symptoms are worse with walking. He feels the most comfortable when he is sitting upright or standing. He states that this is never happened before. He denies any lower extremity edema or chest discomfort. He states that he did take his morning medications today. He states that he has been on both an STACIE inhibitor and an ARB for quite some time at the discretion of his deli manager. He denies any abdominal pain, nausea, vomiting. He denies any urinary complaints. He does follow routinely with Dr. Chen and has for quite some time. He has severe aortic stenosis as of June 2024 diagnosed off of an echocardiogram. Patient also follows with urology for BPH. He is currently on Ozempic for management of his type 2 diabetes and states that he has lost about 20 pounds since starting this medication last year. While in the emergency department he did undergo a chest x-ray that did document possible pneumonia however upon further examination did show volume overload. Patient's hemoglobin was within baseline at 11.5. His sodium was mildly low at 135. Renal function was stable. His original troponin was 20.7 with a repeat pending. His BNP was elevated at 284 with nothing prior to compare. He was given 80 mg IV Lasix. Code discussion did take place and patient reports he is a full code. Discharge Exam General-alert and oriented x3, no fever, no chills HEENT-head atraumatic and normocephalic, pupils equal and reactive to light, extraocular muscles intact Neck-no lymphadenopathy or thyromegaly, trachea midline Chest-clear to auscultation. No rales, wheezing or rhonchi Cardiac-regular rate and rhythm, normal S1 and S2. Harsh grade 3/6 pansystolic murmur at the left sternal border Abdomen-normal bowel sounds, no hepatosplenomegaly Extremities-no cyanosis, clubbing, or edema Neuro-cranial nerves II through XII intact, motor and sensory function within normal limits, strength symmetrical, no focal deficits Psych-normal affect, normal mood Discharge Plan Discharge Items Patient Disposition: Home - Self-Care Reason For Visit: SOB Discharge Diagnosis: Acute diastolic congestive heart failure, uncontrolled hypertension, known severe aortic valve stenosis Condition on Discharge: Good Activity: As commented below Activity Comment: Avoid overexertion Non-emergency contact: Primary Care Provider and Core Baker Call non-emergency contact if: you have any medication questions and your symptoms worsen Follow-up/Referrals: ProDavin MD [Primary Care Provider] - Diet: Carb Consistent or DM2 and Heart Healthy Addtl Attending Provider Instructions: Metoprolol tartrate 25 mg twice daily is new. Ramipril has been decreased to 5 mg twice daily. Prescriptions have been sent to [facility] pharmacy. All other medications remain the same. See your deli manager as soon as possible for discussion about aortic valve replacement Pending Studies at Discharge: No Stand-Alone Forms: My [facility] [employer], Smoking Cessation Medications and DC Order Prescriptions: New metoprolol tartrate 25 mg Tablet 25 mg PO BID Qty: 60 0RF ramipril 5 mg capsule 5 mg PO BID Qty: 60 0RF Continued famotidine [Pepcid] 20 mg tablet 20 mg PO DAILY Qty: 90 3RF meloxicam 7.5 mg tablet 7.5 mg PO BID PRN (Reason: osteoarthritis flare up) Qty: 180 1RF esomeprazole magnesium 40 mg capsule,delayed release(DR/EC) 40 mg PO QPM Qty: 90 3RF olmesartan 40 mg tablet 40 mg PO QPM Qty: 90 3RF atorvastatin 40 mg tablet 40 mg PO QPM Qty: 90 3RF albuterol sulfate 90 mcg/actuation HFA aerosol inhaler 2 puff inhalation Q8H PRN (Reason: shortness of breath or wheezing) Qty: 3 1RF latanoprost 0.005 % drops 1 drops OP QPM Qty: 2.5 2RF tamsulosin 0.4 mg capsule 0.4 mg PO BID Qty: 180 3RF multivitamin [Daily Multi-Vitamin] tablet 1 tab PO QAM aluminum-magnesium hydroxide 500-500 mg/5 mL Suspension 5 ml PO HS tadalafil 5 mg tablet 5 mg PO DAILY Rx Instructions: TAKE 1 TABLET DAILY semaglutide 1 mg/dose (4 mg/3 mL) pen injector 1 mg subcut WK Rx Instructions: 1 mg subcutaneously once weekly; a1c 6.8 with diabetes type two; Discontinued ramipril 10 mg capsule 10 mg PO BID Qty: 180 3RF Discharge Orders: Discharge Order- CHF (Routine); Ordered 10/20/24 Ordered By: Freddie Tol[place]/Other Patient Handouts: Managing Type 2 Diabetes Admission Data Admit Date/Time: 10/19/24 15:42 Attending Provider: Freddie Hunt Admit Provider: Freddie Hunt Primary Care Provider: Davin Urena Other Providers: Alexis Morocho Hospital Stay Data Consultations 10/19/24 15:21 ED Decision to Admit Stat Pending Results Patient Have Any Pending Studies at Discharge: No Discharge Instructions Given to Patient (Per Discharging Provider) Metoprolol tartrate 25 mg twice daily is new. Ramipril has been decreased to 5 mg twice daily. Prescriptions have been sent to [facility] pharmacy. All other medications remain the same. See your deli manager as soon as possible for discussion about aortic valve replacement Total Time Total Time Spent Total Time Spent (In Minutes): 50 minutes Coding Level of Care Code 79925 INP/OBS DISCH >30 MIN Diagnoses Acute CHF (congestive heart failure) I50.9 Acute respiratory failure with hypoxia J96.01 Essential hypertension I10 Hypertension type: essential hypertension Aortic stenosis I35.0 Type 2 diabetes mellitus E11.9
[2024-10-20 11:04] VITALS: TEMP 98.2
[2024-10-20 11:49] VITALS: PULSE 79
[2024-10-20] MEDS ORDERED: LOSARTAN POTASSIUM 50 MG TAB PO SCH (21:00)
== END 2024-10-20 13:43 | disposition home or self-care (01) | DRG 291 ==
LOC: SUATTDRO → ED 13:07 → 2N 15:42 → INTOOBSV 15:42 → 2N 17:53